=== PATIENT | female | born 1985 | race Caucasian/White ===

== ENCOUNTER 2018-01-30 16:37 | Emergency (ER) | payer SELFPAY ==
--- NOTE | 2018-01-30 17:04 | ED.PDOC ---
History of Present Illness - General Stated Complaint: bladder pain and vaginal discharge Time Seen by Provider: 01/30/18 16:57 Source: patient Exam Limitations: no limitations - History of Present Illness Initial Comments: Patient presents with bladder pain for three days. Denies dysuria/anuria/ frequency/hematuria. She said she was having unprotected sex just before presentation and her partner noticed white vaginal discharge. She is afraid she may have an STI. No other complaints. Timing/Duration: other - 3 days Severity: mild Improving Factors: nothing Worsening Factors: nothing Associated Symptoms: denies symptoms Allergies/Adverse Reactions: Allergies NO KNOWN ALLERGY Allergy (Verified 01/30/18 17:08) Home Medications: Ambulatory Orders NK [NK] 01/30/18 Review of Systems - Review of Systems Constitutional: States: no symptoms reported EENTM: States: no symptoms reported Respiratory: States: no symptoms reported Cardiology: States: no symptoms reported Gastrointestinal/Abdominal: States: no symptoms reported Genitourinary: States: see HPI Musculoskeletal: States: no symptoms reported Skin: States: no symptoms reported Neurological: States: no symptoms reported Endocrine: States: no symptoms reported Hematologic/Lymphatic: States: no symptoms reported Family Medical History - Family History Mother Family History: Unknown Living Status: Unknown Physical Exam - Physical Exam General Appearance: Alert Respiratory: chest non-tender, lungs clear, normal breath sounds Cardiovascular/Chest: normal peripheral pulses, regular rate, rhythm, no edema Gastrointestinal/Abdominal: normal bowel sounds, non tender, soft, other - bladder NTTP, non-distended Skin Exam: normal color Progress - Progress Progress: 01/30/18 18:58 UA showe wbcs , small LE, and 1+ bacteria. She was treated empirically with Azithromycin 1 gram po x one and Rocephin 250 mg IM x one for G/C chlamydia. She was instructed to abstain from sexual intercourse until her G/C results were back and to have her parnter tested. Questions were elicited and answered. Patient voiced understanding and agreement with the plan. She refused an HIV test. She was encouraged to get an HIV test as well. Laboratory Tests 01/30/18 01/30/18 17:01 17:32 Urine Color Yellow Urine Appearance Cloudy Urine pH 5.5 Ur Specific [place] >= 1.030 Urine Protein Trace Urine Glucose (UA) Negative Urine Ketones Negative Urine Blood Trace-lysed H Urine Nitrite Negative Urine Bilirubin Negative Urine Urobilinogen 0.2 Ur Leukocyte Esterase Small H Urine RBC 0-1 Urine WBC 20-30 H Ur Epithelial Cells 1-3 Calcium Oxalate Crystal 1+ Urine Bacteria 1+ Urine HCG, Qual Negative 01/30/18 19:05 Departure - Departure Clinical Impression: Cystitis, High risk sexual behavior Disposition: Discharge to Home or Self Care Condition: Good Diet: resume usual diet Activity: increase activity as tolerated Home Medications: Ambulatory Orders NK [NK] 01/30/18 Additional Instructions: You are encouraged to have you and your partner tested for HIV. Follow up with your regular doctor in 2 weeks to be retested for cure.
[2018-01-30 17:08] VITALS: O2SAT 100
[2018-01-30] MEDS ORDERED: AZITHROMYCIN 250 MG TAB PO ONE (18:45)
[2018-01-30] MEDS ORDERED: LIDOCAINE 1% 10 ML VIAL INJ ONE (18:48)
[2018-01-30 19:37] VITALS: BP 152/94; TEMP 97.6
== END 2018-01-30 19:36 | disposition home or self-care (01) ==
LOC: ER 16:37
DX: N30.90 Cystitis, unspecified without hematuria (principal); Z72.51 High risk heterosexual behavior
CPT/HCPCS: 81001; 81025; 87086; 87491; 87591; J0696; Q0144